=== PATIENT | female | born 1970 | race Two or more races ===

== ENCOUNTER 2018-08-14 10:53 | Emergency (ER) | payer BC ==
[~2018-08-14] VITALS: Ht 165.1 cm; Wt 60.0 kg
[2018-08-14] MEDS ORDERED: IPRATROPIUM/ALBUTEROL 0.5-3(2.5)MG/3ML NEB HHN ONE (11:30)
[2018-08-14] MEDS ORDERED: DEXAMETHASONE 10 MG/ML VIAL IV ONE (11:30)
[2018-08-14 15:46] VITALS: BP 104/72
== END 2018-08-14 15:50 | disposition home or self-care (01) ==
LOC: ER 10:53
DX: R05 Cough (principal); R06.02 Shortness of breath
CPT/HCPCS: 70360; 71045; 81025; 94640; 96374; 99283; J1100; J7620; Z7610